=== PATIENT | female | born 1965 | race African-American/Black ===

== ENCOUNTER 2019-03-20 13:17 | Emergency (ER) | payer OTHER ==
--- NOTE | 2019-03-20 13:28 | PDOC ---
Rapid Medical Evaluation Time Seen by Provider: 03/20/19 13:21 Medical Evaluation: 03/20/19 13:21 CC:room spinning dizziness at work. Worsens with movement PE: No focal findings Orders: [facility]. IVF, meclizine The patient will proceed to ED for continued evaluation. Discharge Disposition - Diagnosis Dizziness - Referrals - Patient Instructions - Post Discharge Activity
[2019-03-20 13:30] VITALS: TEMP 98.3; BMI 58.6
[2019-03-20] MEDS ORDERED: MECLIZINE HCL 25 MG TABLET (FP) PO ONE ×2 (13:31→15:07)
[2019-03-20] MEDS ORDERED: SODIUM CHLORIDE 1,000 ML IV STA (13:31)
[2019-03-20] MEDS ORDERED: MECLIZINE HCL 25 MG TABLET (FP) ONE ×2 (14:14→15:09)
[2019-03-20 14:18] LABS: BASO % 0.7 % (0-2.0); EOS % 1.8 % (0-4.5); HEMATOCRIT 41.1 % (32.4-45.2); HEMOGLOBIN 13.7 GM/dL (10.7-15.3); MCH 30.9 pg (25.7-33.7); MCHC 33.4 g/dl (32.0-36.0); MEAN CELL VOLUME 92.6 fl (80-96); MEAN PLT VOLUME 7.8 fl (7.5-11.1); MONO % 8.3 % (3.8-10.2); NEUT % 64.2 % (42.8-82.8); PLATELET COUNT 240 K/MM3 (134-434); RBC 4.43 M/mm3 (3.60-5.2); RDW 14.3 % (11.6-15.6); WHITE BLOOD COUNT 7.9 K/mm3 (4.0-10.0)
[2019-03-20 14:51] LABS: ALBUMIN 3.6 g/dl (3.4-5.0); BILIRUBIN,TOTAL 0.1 mg/dL (0.2-1); BLOOD UREA NITROGEN 15.2 mg/dL (7-18); CALCIUM 9.5 mg/dL (8.5-10.1); CREATININE 0.7 mg/dL (0.55-1.3); POTASSIUM 4.1 mmol/L (3.5-5.1)
[2019-03-20] MEDS ORDERED: ACETAMINOPHEN 1000 MG/100 ML VIAL (NON FORMULARY) IVPB ONE (15:07)
[2019-03-20] MEDS ORDERED: ACETAMINOPHEN 325 MG TABLET (FP) ONE (15:09)
[2019-03-20] MEDS ORDERED: ACETAMINOPHEN INJECTION 100 ML IVPB ONE (15:11)
--- NOTE | 2019-03-20 15:26 | PDOC ---
History of Present Illness - General Chief Complaint: Lightheaded Stated Complaint: LIGHTHEADED Time Seen by Provider: 03/20/19 13:21 - History of Present Illness Initial Comments: Regina Weller is a 53yo woman with a PMH of HTN, asthma, pre-DM (on metformin), morbid obesity who presents reporting acute onset of vertigo while at work today. She states that she had been in her normal state of health but suddenly started feeling everything spinning around 11am. She attempted to rest, and the sensation resolved but recurred with movement. She felt that she needed to drink some water, but the spinning sensation worsened when she started to walk, so she came to the ED for evaluation. She denies any associated nausea, SOB, chest pain, difficulty walking, loss of balance, focal weakness, numbness, tinnitus, or other symptoms occurring along with the vertigo. She does endorse recent treatment with several courses of topical and oral antibiotics for right otitis, most recently about 3 weeks ago, but denies any current ear pain, fullness, ringing, drainage, or other ear symptoms. She does report a sensation of "pressure" behind vs inside her right ear. Past History - Past Medical History Allergies/Adverse Reactions: Allergies Allergy/AdvReac Type Severity Reaction Status Date / Time No Known Allergies Allergy Verified 03/20/19 13:30 Home Medications: Ambulatory Orders Aspirin [ASA -] 81 mg PO DAILY 03/20/19 Cholecalciferol (Vitamin D3) [Vitamin D3 -] 1,000 unit PO DAILY 03/20/19 Lisinopril [Prinivil] 20 mg PO DAILY 03/20/19 Meclizine HCl 25 mg PO QID PRN #30 tablet 03/20/19 Metformin HCl [Glucophage] 1,000 mg PO DAILY 03/20/19 Asthma: Yes COPD: No Diabetes: Yes (PRE DIABETIC) HTN: Yes - Surgical History Cholecystectomy: Yes - Psycho Social/Smoking Cessation Hx Smoking History: Current every day smoker Number of Cigarettes Smoked Daily: 7 Information on smoking cessation initiated: No Hx Alcohol Use: Yes Drug/Substance Use Hx: No Review of Systems - Review of Systems Comments:: General: No fevers, no chills, no weight or appetite change, no malaise HEENT: No changes in vision, no changes in hearing, no congestion, no sore throat. See HPI CV: No chest pain, no palpitations, no LE edema Pulm: No SOB, no cough, no wheezing GI: No nausea or vomiting, no change in bowel habits, no melena : No frequency, no urgency, no dysuria Musc: No back pain, no joint swelling, no recent injury Skin: No rash, no lesions, no erythema Endo: No excessive thirst, no heat/cold intolerance Heme: No unusual bruising or bleeding, no swollen glands Neuro: No syncope, no numbness/tingling, no focal weakness. See HPI Vasc: No claudication Psych: No recent change in mood, no SI or HI *Physical Exam - Vital Signs Last Vital Signs Temp Pulse Resp BP Pulse Ox 98.3 F 103 H 16 153/87 96 03/20/19 13:24 03/20/19 13:24 03/20/19 13:24 03/20/19 13:24 03/20/19 13:24 - Physical Exam General: Comfortable, no acute distress HEENT: PERRL, EOMI, MMM, voice normal, normal neck ROM. Slight erythema in Rt ear canal but TM clear b/l. No TTP or erythema posterior to ear. Cards: RRR, no murmur appreciated Pulm: Comfortable on room air, clear to auscultation bilaterally Abd: Soft, nontender, nondistended Ext: Atraumatic. No LE edema. ROM intact. WWP Skin: Normal color, no rashes or lesions Neuro: A&Ox3, CN grossly intact, normal speech, motor/sensory grossly intact and symmetric Psych: Mood appropriate to situation ED Treatment Course - LABORATORY CBC & Chemistry Diagram: 03/20/19 14:00 03/20/19 14:00 - ADDITIONAL ORDERS Additional order review: Laboratory Results 03/20/19 03/20/19 14:00 14:00 Sodium 137 Potassium 4.1 Chloride 104 Carbon Dioxide 29 Anion Gap 4 L BUN 15.2 Creatinine 0.7 Est GFR (CKD-EPI)AfAm 116.27 Est GFR (CKD-EPI)NonAf 100.32 Random Glucose 161 H Calcium 9.5 Total Bilirubin 0.1 L AST 21 ALT 43 Alkaline Phosphatase 105 Creatine Kinase 196 H Troponin I < 0.02 Total Protein 7.0 Albumin 3.6 03/20/19 14:00 RBC 4.43 MCV 92.6 MCHC 33.4 RDW 14.3 MPV 7.8 Neutrophils % 64.2 Lymphocytes % 25.0 Monocytes % 8.3 Eosinophils % 1.8 Basophils % 0.7 - Medications Given in the ED: ED Medications Discontinued Medications Generic Name Dose Route Start Last Admin Trade Name Bill PRN Reason Stop Dose Admin Acetaminophen 1,000 mg 03/20/19 15:07 03/20/19 15:14 Ofirmev Injection - IVPB 03/20/19 15:08 1,000 mg ONCE ONE Administration Sodium Chloride 1,000 mls @ 1,000 mls/hr 03/20/19 13:31 03/20/19 14:16 Normal Saline - IV 03/20/19 14:30 1,000 mls/hr ASDIR STA Administration Meclizine HCl 25 mg 03/20/19 13:31 03/20/19 14:16 Antivert - PO 03/20/19 13:32 25 mg ONCE ONE Administration Meclizine HCl 25 mg 03/20/19 15:07 03/20/19 15:14 Antivert - PO 03/20/19 15:08 25 mg ONCE ONE Administration Medical Decision Making - Medical Decision Making 03/20/19 15:26 Regina Weller is a 53yo woman with a PMH of HTN, asthma, pre-DM (on metformin), morbid obesity who presents reporting acute onset of vertigo while at work today , worsening with position changes and ambulation. She endorses recent right- sided otitis requiring multiple rounds of antibiotics. - Vertigo w/ movement most likely benign positional vertigo vs vertigo secondary to recent right otitis - No fever, hearing loss, inability to ambulate, focal weakness, or other neurological symptoms suggesting central cause - CBC, CMP, trop, UA, UCx, CT head ordered in RME. CT head canceled given no red flags - Meclizine and IVF 03/20/19 15:38 - Labs reviewed. No significant abnormalities - Recently given meclizine, will reassess in 20-30 minutes 03/20/19 16:26 - Patient feeling significantly improved. Now able to change position without vertigo, ambulating without difficulty - Observed eating [employer] in the ED, no nausea/vomiting after eating - Requesting to be discharged home. Will give ENT for follow up Discussed with Dr Rachel Franco PGY2 Discharge - Discharge Information Problems reviewed: Yes Clinical Impression/Diagnosis: Dizziness Condition: Stable Disposition: HOME - Admission No - Additional Discharge Information Prescriptions: Meclizine HCl 25 mg PO QID PRN #30 tablet PRN Reason: Vertigo - Follow up/Referral Referrals: Oniel Hutton MD [Staff Physician] - Abimael Hall MD [Staff Physician] - - Patient Discharge Instructions Patient Printed Discharge Instructions: DI for Labyrinthitis Additional Instructions: Discharge Instructions: You were seen in the emergency department for vertigo. This is most likely due to inflammation from your recent ear infection. Home Care: - You have been prescribed a medication called meclizine that may be taken every 6 hours as needed for vertigo. - Make sure you are staying well hydrated - Continue to take all of your regular home medications as prescribed - You have been given information for follow up with an ENT doctor. Call Dr Hutton or Dr Hall to schedule an appointment within the next 1-2 weeks. - Seek immediate care for worsening symptoms, inability to walk, persistent nausea/vomiting, or any other emergency. - Post Discharge Activity Work/Back to School Note: Back to Work
--- NOTE | 2019-03-20 15:47 | PDOC ---
Attending Attestation - Resident Resident Name: Nori Franco - ED Attending Attestation I have performed the following: I have examined & evaluated the patient, The case was reviewed & discussed with the resident, I agree w/resident's findings & plan - HPI HPI: 03/20/19 15:56 53yo woman with a PMH of HTN, asthma, pre-DM (on metformin), morbid obesity who presents reporting acute onset of vertigo while at work today. She states that she had been in her normal state of health but suddenly started feeling everything spinning around 11am. Exacerbated with head movement, improved with rest. She does report a sensation of "pressure" in right ear. She denies any associated nausea, vomiting, SOB, chest pain, difficulty walking , loss of balance, focal weakness, numbness, tinnitus, or other symptoms occurring along with the vertigo. She does endorse recent treatment with several courses of topical and oral antibiotics for right otitis media/externa by PMD, most recently about 3 weeks ago, but denies any current ear pain, fullness, ringing, drainage, or other ear symptoms. - Physicial Exam PE: 03/20/19 15:57 Agree with the resident's HPI and PE as documented in the electronic medical record. NAD, well appearing, EOMI, PERRL, nl conjunctiva, anicteric; neck supple. lungs clear, RRR, abdomen soft nontender. no rebound, guarding. Back nontender. TOBAR x4, no focal neuro deficits. No peripheral edema. normal color for ethnicity , WWP. Alert, oriented to person time and place. CN II-XII grossly intact. Strength prox and distally 5/5 throughout. Sensation grossly intact to light touch. TBOAR x4. No cerebellar signs, no dysmetria, bilateral finger to nose and heel to schreiber equal and symmetric. Speech clear. - Medical Decision Making 03/20/19 15:44 Vital Signs Temp Pulse Resp BP Pulse Ox 98.3 F 103 H 16 153/87 96 03/20/19 13:24 03/20/19 13:24 03/20/19 13:24 03/20/19 13:24 03/20/19 13:24 vitals reviewed, wnl, mild tachy likely from dizzy/vertigo ddx peripheral vs central vertigo neuro intact, most likely labrynthitis/viral etiology right ear discomfort, with chronic OM vs OE, likely peripheral cause no indication for CT imaging without focal deficits, no nystagmus, speech clear , gait stable meclizine, tylenol, IVF, reassess ENT referral for peripheral vertigo meclizine rx prn for dizziness/vertigo Pt to be discharged in stable condition. Patient made aware of clinical impression, treatment recommendations and disposition plan, return precautions discussed (including but not limited to new or persistent/worsening symptoms, pain, fevers, or signs of infection, chest pain, respiratory distress, inability to tolerate oral intake, dehydration, syncope, or neurologic changes) . Follow up with PMD and/or ENT specialist as recommended, follow up information provided, take medications as instructed for duration of time. continue with supportive care, avoid triggers and precipitants. All questions answered to patient's satisfaction and expressed understanding and comfort with this. At the time of discharge, the patient is alert, clinically improved, tolerating po and verbalizes understanding of instructions, satisfied with the care received and felt comfortable with the plan. Patient does not suffer from an acute life-threatening medical condition at this time and is safe for outpatient follow-up. 03/20/19 15:58 03/20/19 16:53 Heart Score/ECG Review #1 ECG reviewed & interpreted by me at: 14:05 General ECG Interpretation: Sinus Rhythm, Normal Rate, Normal Intervals 03/20/19 15:47 EKG normal sinus rhythm 87 bpm, no interval abnormalities, narrow QRS, ST and T wave segments and morphology normal. Nonspecific T wave abnormalities
[2019-03-20 16:03] VITALS: BP 132/78; PULSE 78
--- NOTE | 2019-03-21 14:07 | EKG ---
Test Reason : Blood Pressure : / mmHG Vent. Rate : 087 BPM Atrial Rate : 087 BPM P-R Int : 160 ms QRS Dur : 078 ms QT Int : 360 ms P-R-T Axes : 063 053 062 degrees QTc Int : 433 ms NORMAL SINUS RHYTHM NORMAL ECG NO PREVIOUS ECGS AVAILABLE Confirmed by JONO ARMSTRONG MD ([id number]) on 03/21/2019 2:07:06 PM Referred By: Confirmed By:JONO ARMSTRONG MD
== END 2019-03-20 16:58 | disposition home or self-care (01) ==
LOC: JER 13:17
PROC: 3E0337Z Introduction of Electrolytic and Water Balance Substance into Peripheral Vein, Percutaneous Approach (ICD-10-PCS; principal; 2019-03-20)
PROC: 3E033NZ Introduction of Analgesics, Hypnotics, Sedatives into Peripheral Vein, Percutaneous Approach (ICD-10-PCS; 2019-03-20)
DX: H81.11 Benign paroxysmal vertigo, right ear (principal); I10 Essential (primary) hypertension; E11.9 Type 2 diabetes mellitus without complications; Z79.84 Long term (current) use of oral hypoglycemic drugs; J45.909 Unspecified asthma, uncomplicated
CPT/HCPCS: 36415; 80053; 82550; 82553; 84484; 85025; 93005; 93010; 99283-25; J0131; J7030

== ENCOUNTER 2022-08-22 10:42 | Emergency (ER) | payer OTHER ==
[2022-08-22 10:50] VITALS: BP 124/81; RESP 18; TEMP 98.6; BMI 56.6
[2022-08-22] MEDS ORDERED: ALBUTEROL SO4 2.5/IPRATROPIUM 0.5 INH SOL 3 ML VIAL.NEB. NEB ONE ×2 (11:20→11:23)
[2022-08-22 12:16] VITALS: PULSE 80
== END 2022-08-22 12:22 | disposition home or self-care (01) ==
LOC: JER 10:42
PROC: 3E0F7GC Introduction of Other Therapeutic Substance into Respiratory Tract, Via Natural or Artificial Opening (ICD-10-PCS; principal; 2022-08-22)
DX: J01.10 Acute frontal sinusitis, unspecified (principal); B99.9 Unspecified infectious disease; R05.1 Acute cough; J06.9 Acute upper respiratory infection, unspecified; R07.0 Pain in throat; Z20.822 Contact with and (suspected) exposure to COVID-19
CPT/HCPCS: 0241U-QW; 71046-TC-FY; 99284-25